=== PATIENT | female | born 1950 | race Caucasian/White ===

== ENCOUNTER 2018-03-31 01:02 | Observation (INO) | payer OTHER ==
[~2018-03-31] VITALS: Ht 160 cm; Wt 83.6 kg
[2018-03-31 01:38] LABS: HEMATOCRIT 40.8 % (36.0-46.0); HEMOGLOBIN 14.4 G/DL (11.9-15.5); MCH 33.8 PG (29.0-34.0); MCHC 35.3 G/DL (30.0-36.0); MCV 95.8 FL (83-99); PLATELET COUNT 281 K/uL (156-360); RBC DIS.WIDTH-CV 13.2 % (11.8-14.6); RBC DIS.WIDTH-SD 46.5 % (39-53); RED BLOOD COUNT 4.26 M/uL (3.80-5.20); WHITE BLOOD COUNT 9.5 K/uL (4.1-10.2)
[2018-03-31 01:47] LABS: CHLORIDE 101 mEq/L (99-109); POTASSIUM 3.1 mEq/L (3.7-5.4); SODIUM 139 mEq/L (136-147)
[2018-03-31 01:49] LABS: GLUCOSE 135 mg/dL (70-99)
[2018-03-31 01:53] LABS: CREATININE 0.9 mg/dL (0.6-1.3); GFR ESTIMATE (CALCULATED) > 59 mL/min/; UREA NITROGEN (BUN) 15 mg/dL (9-23)
[2018-03-31 02:01] LABS: TROP-I INTERPRETATION NEGATIVE; TROPONIN-I 0.07 ng/mL (0.0-0.30)
[2018-03-31 07:53] LABS: THYROTROPIN (TSH) 6.5 MIU/L (0.4-5.5)
[2018-03-31] MEDS ORDERED: LEVOTHYROXINE100 MCG PO (08:03)
[2018-03-31] MEDS ORDERED: HYDROCHLOROTHIA25 MG PO (08:03)
[2018-03-31] MEDS ORDERED: NATURAL BALANCE15 M1 BOTH EYES (08:04)
[2018-03-31] MEDS ORDERED: ANTIBIOTIC (08:05)
[2018-03-31 09:20] LABS: TROP-I INTERPRETATION NEGATIVE; TROPONIN-I 0.09 ng/mL (0.0-0.30)
[2018-03-31 12:32] VITALS: BP 135/74
[2018-03-31 14:34] LABS: TROP-I INTERPRETATION NEGATIVE; TROPONIN-I 0.11 ng/mL (0.0-0.30)
== END 2018-03-31 16:24 | disposition home or self-care (01) ==
LOC: EME 01:02 → EDOF 07:55 → 4SOUTH 07:55 → ENRESERV 07:57 → 4SOUTH 11:47
PROVIDERS: Emergency Medicine; Physician Assistant Medical
DX: R00.2 Palpitations (principal); I47.1 Supraventricular tachycardia; I10 Essential (primary) hypertension; R94.31 Abnormal electrocardiogram [ECG] [EKG]; R11.0 Nausea; M79.602 Pain in left arm; Z98.890 Other specified postprocedural states; R94.6 Abnormal results of thyroid function studies; F41.9 Anxiety disorder, unspecified; K44.9 Diaphragmatic hernia without obstruction or gangrene; K76.0 Fatty (change of) liver, not elsewhere classified; E03.9 Hypothyroidism, unspecified; Z90.710 Acquired absence of both cervix and uterus
CPT/HCPCS: 71046; 71275; 73030; 80048; 84439; 84443; 84481; 84484; 85027; 85379; 93005; 99281; 99285; G0378; J1650; J2405; J7030